=== PATIENT | male | born 1945 | race Caucasian/White ===

== ENCOUNTER 2020-03-26 18:44 | Inpatient (IN) | payer OTHER, MEDICAID, SELFPAY ==
[~2020-03-26] VITALS: Ht 175.3 cm; Wt 104.3 kg
[2020-03-26 21:24] VITALS: BP 124/80
--- NOTE | 2020-03-27 00:25 | NUR ---
PT ISAIAH, ALS. TAKEN TO BED 5
--- NOTE | 2020-03-27 00:26 | NUR ---
PATIENT PRESENTS TO ED FROM [facility] WITH C/O HYPOXIA, AND HYPERGLYCEMIA . SKIN IS PINK/WARM/DRY; LUNGS CLEAR BL; HR EVEN AND REGULAR; PT DENIES ANY FEVER, CP, SOB, OR COUGH AT THIS TIME; VSS; PATIENT POSITIONED FOR COMFORT; HOB ELEVATED; BEDRAILS UP X2; BED DOWN. ER MD MADE AWARE OF PT STATUS.
--- NOTE | 2020-03-27 00:55 | NUR ---
PADMINI SWAB OBTAINED AND SENT TO LAB
[2020-03-27 01:12] LABS: HEMATOCRIT 43.6 % (36-52); HEMOGLOBIN 13.7 g/dL (12.0-18.0); MEAN CORPUSCULAR HEMOGLOBIN 30 pg (27-31); MEAN CORPUSCULAR HGB CONC 31 g/dL (33-37); MEAN CORPUSCULAR VOLUME 93.9 fL (80-94); PLATELET COUNT (AUTO) 68 K/uL (140-450); RED BLOOD CELL COUNT(AUTO) 4.65 MIL/uL (4.20-6.10); RED CELL DISTRIBUTION WIDTH 15.3 % (11.6-13.7); WHITE BLOOD COUNT (AUTO) 13.3 K/uL (4.8-10.8)
[2020-03-27 01:30] LABS: EOSINOPHILS % (MANUAL) 1 % (0-4); LYMPHOCYTES % (MANUAL) 22 % (20-46); MONOCYTES % (MANUAL) 2 % (5-12)
--- NOTE | 2020-03-27 01:35 | NUR ---
LACTIC ACID REPORTED FROM LAB = 4.1
[2020-03-27 01:36] LABS: ALBUMIN 2.4 g/dL (3.4-5.0); ANION GAP 17.6 (8-16); ASPARTATE AMINOTRANSFERASE 191 U/L (15-37); CARBON DIOXIDE 21.6 mmol/L (21-32); CHLORIDE 149 mmol/L (98-107); CREATININE 2.4 mg/dL (0.6-1.3); GLUCOSE 287 mg/dL (74-106); POTASSIUM 3.2 mmol/L (3.5-5.1); TOTAL BILIRUBIN 0.5 mg/dL (0.0-1.0)
--- NOTE | 2020-03-27 01:40 | NUR ---
TO CT VIA [facility]
[2020-03-27 01:49] LABS: SODIUM SERUM 185 mmol/L (136-145); UREA NITROGEN, BLOOD 65 mg/dL (7-18)
--- NOTE | 2020-03-27 01:53 | NUR ---
PT RETURN FROM RADIOLOGY
--- NOTE | 2020-03-27 01:53 | NUR ---
LAB CALLED FOR CRITICAL LAB VALUE. IS MADE AWARE.
[2020-03-27] MEDS ORDERED: NACL 0.9% 1,000 ML IV ONE (01:55)
--- NOTE | 2020-03-27 01:55 | NUR ---
RETURNED FROM CT
--- NOTE | 2020-03-27 01:59 | NUR ---
EKG ATTEMPTED, PT DID NOT COOPERATE AND ACTIVELY TRIED TO PULL AT CABLES
[2020-03-27 02:03] LABS: PROTHROMBIN TIME 13.2 secs (10.8-13.4)
--- NOTE | 2020-03-27 03:09 | NUR ---
MADE OTHER ATTEMPT AT EKG, PT DID NOT SIT STILL AND DID NOT COOPERATE WITH PROCEDURE. UNABLE TO OBTAIN
--- NOTE | 2020-03-27 04:39 | NUR ---
EKG PERFORMED AT BEDSIDE. PT WAS UNCOOPERATIVE DURING PROCEDURE. EKG READS SINUS RHYTHM @ 96
[2020-03-27] MEDS ORDERED: ACETAMINOPHEN 325 MG TAB PO PRN (08:25)
[2020-03-27] MEDS ORDERED: ONDANSETRON 4 MG/2 ML VIAL IM/IVP PRN (08:25)
[2020-03-27] MEDS ORDERED: guaiFENesin DM 200/20 MG-10 ML 10 ML UDC PO PRN (08:25)
[2020-03-27] MEDS ORDERED: POTASSIUM CHLORIDE 10 MEQ TABER PO PRN (08:25)
[2020-03-27] MEDS ORDERED: DOCUSATE SODIUM 100 MG GELCAP PO PRN (08:25)
[2020-03-27] MEDS ORDERED: HYDROcodone/APAP 7.5/325 MG 1 TAB PO PRN (08:25)
[2020-03-27] MEDS ORDERED: ZOLPIDEM 5 MG TAB PO PRN (08:25)
[2020-03-27] MEDS ORDERED: NITROGLYCERIN 0.4 MG TAB SL PRN (08:35)
[2020-03-27] MEDS ORDERED: NACL 0.45% 1,000 ML IV ONE (08:35)
[2020-03-27] MEDS: METOPROLOL 25 MG TAB PO SCH ×3 (09:00→21:40)
[2020-03-27] MEDS ORDERED: lisinopriL 5 MG TAB PO SCH (09:00)
[2020-03-27] MEDS: ECOTRIN 81 MG TABEC PO SCH (09:00)
[2020-03-27] MEDS: PANTOPRAZOLE 40 MG TABEC PO SCH (09:00)
--- NOTE | 2020-03-27 09:40 | NUR ---
PT IS INCOHERENT, UNABLE TO FOLLOW INSTRUCTIONS. 9AM MEDS NOT GIVEN. DR PONCE INFORMED- ORDERED TO HOLD MEDS FOR NOW.
[2020-03-27 09:48] LABS: BASOPHILS # (AUTO) 0.1 K/uL (0.00-0.22); EOSINOPHILS # (AUTO) 0.1 K/uL (0-0.4); EOSINOPHILS % (AUTO) 0.6 % (0.0-4.0); HEMATOCRIT 42.9 % (36-52); HEMOGLOBIN 13.5 g/dL (12.0-18.0); MEAN CORPUSCULAR HEMOGLOBIN 30 pg (27-31); MEAN CORPUSCULAR HGB CONC 32 g/dL (33-37); MEAN CORPUSCULAR VOLUME 94.9 fL (80-94); MONOCYTES # (AUTO) 0.3 K/uL (0.8-1.0); MONOCYTES % (AUTO) 2.5 % (1.7-9.3); NEUTROPHILS # (AUTO) 9.2 K/uL (1.8-7.7); NEUTROPHILS % (AUTO) 78.9 % (42.2-75.2); PLATELET COUNT (AUTO) 60 K/uL (140-450); RED BLOOD CELL COUNT(AUTO) 4.52 MIL/uL (4.20-6.10); RED CELL DISTRIBUTION WIDTH 15.5 % (11.6-13.7); WHITE BLOOD COUNT (AUTO) 11.6 K/uL (4.8-10.8)
[2020-03-27] MEDS ORDERED: ASPIRIN 81 MG TAB.CHEW ONE (10:47)
[2020-03-27] MEDS ORDERED: CRUSHER, PILL MC ONE ×2 (10:50→18:02)
--- NOTE | 2020-03-27 11:00 | NUR ---
PT AT BEDSIDE
[2020-03-27 11:44] LABS: AMYLASE 77 U/L (25-115); ANION GAP 18.6 (8-16); ASPARTATE AMINOTRANSFERASE 223 U/L (15-37); CARBON DIOXIDE 22.5 mmol/L (21-32); CHLORIDE 153 mmol/L (98-107); CHOL/HDL RATIO 6.8 (1-4.5); CREATININE 2.7 mg/dL (0.6-1.3); FREE T4 (FREE THYROXINE) 0.86 ng/dL (0.76-1.46); HDL CHOLESTEROL 24 mg/dL (40-60); LDL (CALC) 95 mg/dL (60-100); PHOSPHORUS 5.3 mg/dL (2.5-4.9); POTASSIUM 3.1 mmol/L (3.5-5.1); THYROID STIMULATING HORMONE 1.15 uIU/mL (0.34-3.74); TOTAL BILIRUBIN 0.4 mg/dL (0.0-1.0); TRIGLYCERIDES 228 mg/dL (30-150)
[2020-03-27 11:50] LABS: SODIUM SERUM 191 mmol/L (136-145)
[2020-03-27 11:59] LABS: ALBUMIN 2.4 g/dL (3.4-5.0); GLUCOSE 279 mg/dL (74-106); LIPASE 303 U/L (73-393)
[2020-03-27 12:05] LABS: UREA NITROGEN, BLOOD 65 mg/dL (7-18)
[2020-03-27 12:12] LABS: MAGNESIUM 2.6 mg/dL (1.8-2.4)
--- NOTE | 2020-03-27 12:22 | NUR ---
SPOKE TO DR BOSCH REGARDING CRITICAL LABS OF PT. NO NEW ORDERS GIVEN.
[2020-03-27] MEDS ORDERED: DEXTROSE 50% 50 ML SYR IVP PRN (12:55)
[2020-03-27] MEDS ORDERED: ACET-2619 PO (13:03)
[2020-03-27] MEDS ORDERED: CHOL100030 PO (13:03)
[2020-03-27] MEDS ORDERED: ASCO500T93 PO (13:03)
[2020-03-27] MEDS ORDERED: METF500T PO (13:03)
[2020-03-27] MEDS ORDERED: MEMA10TA PO (13:03)
[2020-03-27] MEDS ORDERED: METO25TA PO (13:03)
[2020-03-27] MEDS ORDERED: MULT-1328 PO (13:03)
--- NOTE | 2020-03-27 14:40 | NUR ---
ST AT BEDSIDE
--- NOTE | 2020-03-27 15:53 | NUR ---
*ST: CASE MANAGEMENT NOTE* Order received, chart reviewed. Cleared with FIELD CHECKER, Sharyn, to attempt bedside swallow eval. RN reported holding PO meds 2/2 pt's restlessness and poor follow-through. RN reported Pt often sliding in gurney, slipping his head in between gurney rails. Per chart, Pt received MS/Thin Liquids at [facility] prior to admit. Pt seen bedside, restless, often scratching his own chest and stomach, pulling on lines, sliding down in gurney. RN present to assist STRATEGIC PROCUREMENT MANAGER in repositioning Pt in gurney. Pt intermittently opened eyes but did not respond to greeting by speakers. No phonation emitted/elicited. Pt had very dry oral mucosa with STRATEGIC PROCUREMENT MANAGER attempting some oral care with Pt not engaging in sucking reflex or defensiveness. Ice chips x2 trialed with boli remaining where placed requiring removal by STRATEGIC PROCUREMENT MANAGER. Further PO trials deferred 2/2 poor attention to task. POC d/w pt's RN. RN verbalized that she would hold PO meds as Pt has severe ALOC. -Tuyet Gonzaelz MA, CCC-STRATEGIC PROCUREMENT MANAGER
[2020-03-27 16:15] LABS: APPEARANCE,URINE CLEAR (CLEAR); BILIRUBIN,URINE NEGATIVE (NEGATIVE); BLOOD, URINE 3+ (NEGATIVE); COLOR,URINE YELLOW (YELLOW); LEUKOCYTE ESTERASE ,URINE NEGATIVE (NEGATIVE); NITRITE, URINE NEGATIVE (NEGATIVE); PH,URINE 5.5 (5.0-9.0); UGLUCOSE TRACE (NEGATIVE)
[2020-03-27] MEDS: BLOOD GLUCOSE MONITORING 1 DEV DEV FS SCH ×2 (16:30→21:39)
[2020-03-27 16:43] LABS: WBC,URINE 0-5 /HPF (0-5)
[2020-03-27 16:46] LABS: BARBITURATE, URINE NEGATIVE ng/ml (NEG <=200); BENZODIAZEPINE, URINE NEGATIVE ng/mL (NEG <=200); CANNABINOID, URINE NEGATIVE ng/mL (NEG <=50); COCAINE, URINE NEGATIVE ng/mL (NEG <=300); OPIATE, URINE NEGATIVE ng/mL (NEG <=2000); PHENCYCLIDINE SCREEN,URINE NEGATIVE ng/mL (NEG <=25)
[2020-03-27] MEDS ORDERED: ATORVASTATIN 20 MG TAB PO SCH (17:00)
[2020-03-27] MEDS: INSULIN LISPRO SLIDING SCALE 100 UNITS/ML VIAL SUBQ PRN (18:00)
--- NOTE | 2020-03-27 18:24 | NUR ---
Luh cullen in ED - 03/27/20 at 1825 by [facility] SWAB DONE. PICKED UP BY LAB
--- NOTE | 2020-03-27 19:21 | NUR ---
RECIVED REPORT FROM CHASTITY SOLOMON, CONTINUATION OF CARE.
--- NOTE | 2020-03-27 19:21 | NUR ---
REPORT GIVEN TO JUANITO SOL. TRANSFER OF CARE AT THIS TIME.
[2020-03-27 21:15] LABS: CHLORIDE 153 mmol/L (98-107); CREATININE 2.3 mg/dL (0.6-1.3); GLUCOSE 179 mg/dL (74-106)
[2020-03-27 21:18] LABS: SODIUM SERUM 191 mmol/L (136-145); UREA NITROGEN, BLOOD 64 mg/dL (7-18)
--- NOTE | 2020-03-27 21:30 | NUR ---
REPORTED ABNORMAL LABS TO DR. PONCE VIA TELEPHONE. PER DR. PONCE NO NEW ORDERS RECIVED. LABS - Na 191, K 3.0, Cl 153, BUN 164, Creatine: 2.3.
[2020-03-27 22:38] LABS: CARBON DIOXIDE 22.3 mmol/L (21-32); CHLORIDE 151 mmol/L (98-107); CREATININE 2.5 mg/dL (0.6-1.3); GLUCOSE 250 mg/dL (74-106); POTASSIUM 3.3 mmol/L (3.5-5.1)
[2020-03-27 23:18] LABS: SODIUM SERUM 190 mmol/L (136-145)
[2020-03-27 23:19] LABS: UREA NITROGEN, BLOOD 66 mg/dL (7-18)
--- NOTE | 2020-03-27 23:46 | NUR ---
PERFORMED PERNIEAL CARE ON PT. SKIN LEFT CLEAN AND DRY. SKIN INTACT. BED LOCKED AND IN LOWEST POSITON. 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
--- NOTE | 2020-03-28 01:02 | NUR ---
Patient appears to be resting comfortably in bed. Vital Signs within normal limits. Respirations even and unlabored.
[2020-03-28] MEDS: NACL 0.45% 1,000 ML IV SCH ×3 (01:36→16:40)
--- NOTE | 2020-03-28 02:16 | NUR ---
Patient appears to be resting comfortably in bed. Patient remains on bus driver/monitor. Vital Signs within normal limits. Respirations even and unlabored. Pernineal care provided. Skin left clean and dry. No skin breakdown noted. Patient side rails up x2 for safety. Pt bed is locked and in lowest position.
--- NOTE | 2020-03-28 04:14 | NUR ---
Lab at bedside.
[2020-03-28 05:07] LABS: BASOPHILS # (AUTO) 0.1 K/uL (0.00-0.22); BASOPHILS % (AUTO) 0.8 % (0.0-2.0); EOSINOPHILS # (AUTO) 0.2 K/uL (0-0.4); EOSINOPHILS % (AUTO) 1.5 % (0.0-4.0); HEMATOCRIT 41.5 % (36-52); LYMPHOCYTES # (AUTO) 1.3 K/uL (2.0-11.5); LYMPHOCYTES % (AUTO) 11.3 % (20.5-51.1); MEAN CORPUSCULAR HEMOGLOBIN 30 pg (27-31); MEAN CORPUSCULAR HGB CONC 31 g/dL (33-37); MEAN CORPUSCULAR VOLUME 95.4 fL (80-94); MONOCYTES # (AUTO) 0.4 K/uL (0.8-1.0); MONOCYTES % (AUTO) 3.3 % (1.7-9.3); NEUTROPHILS # (AUTO) 9.7 K/uL (1.8-7.7); NEUTROPHILS % (AUTO) 83.1 % (42.2-75.2); PLATELET COUNT (AUTO) 54 K/uL (140-450); RED BLOOD CELL COUNT(AUTO) 4.35 MIL/uL (4.20-6.10); RED CELL DISTRIBUTION WIDTH 15.3 % (11.6-13.7); WHITE BLOOD COUNT (AUTO) 11.7 K/uL (4.8-10.8)
[2020-03-28 06:03] LABS: CARBON DIOXIDE 22.8 mmol/L (21-32); CHLORIDE 153 mmol/L (98-107); CREATININE 2.2 mg/dL (0.6-1.3); GLUCOSE 192 mg/dL (74-106)
[2020-03-28 06:17] LABS: POTASSIUM 2.8 mmol/L (3.5-5.1); SODIUM SERUM 190 mmol/L (136-145); UREA NITROGEN, BLOOD 63 mg/dL (7-18)
--- NOTE | 2020-03-28 06:18 | NUR ---
RECIVED REPORT FOR CRITICAL LAB POTASSIUM 2.8, PRN MEDICATION OF 40MEQ PO GIVEN TO PATIENT. PT ABLE TO TOLERATE MEDICATION ADMIN WITH APPLESAUCE. 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 VSS. PT REPOSITIONED IN BED. BED LOCKED AND IN LOWEST POSITION. SKIN SLEAC AND DRY AT THIS TIME.
--- NOTE | 2020-03-28 06:19 | NUR ---
EDELMIRAD MADE AWARE OF ABNORMAL LABS.
--- NOTE | 2020-03-28 07:19 | NUR ---
REPORT GIVEN TO RADHA SOLOMON. TRANSFER OF CARE.
--- NOTE | 2020-03-28 07:28 | NUR ---
assumed patient care 74 years old male altered, resting in [facility] no sob no acute resp distress vital stable will continue to monitor awaiting for admit ICU bed.
[2020-03-28 08:07] LABS: T4 (THYROXINE) 5.3 ug/dL (4.5-12.0)
[2020-03-28] MEDS: BLOOD GLUCOSE MONITORING 1 DEV DEV FS SCH ×3 (08:30→21:00)
[2020-03-28] MEDS: INSULIN LISPRO SLIDING SCALE 100 UNITS/ML VIAL SUBQ PRN (08:36)
--- NOTE | 2020-03-28 08:46 | NUR ---
PROVIDED PT WITH BREAKFAST TRAY
[2020-03-28] MEDS: ECOTRIN 81 MG TABEC PO SCH (09:00)
[2020-03-28] MEDS: METOPROLOL 25 MG TAB PO SCH ×2 (09:53→21:00)
[2020-03-28] MEDS: PANTOPRAZOLE 40 MG TABEC PO SCH (09:54)
--- NOTE | 2020-03-28 10:45 | NUR ---
patient condition unchanged, bed/linens changed will continue to monitor.
--- NOTE | 2020-03-28 15:31 | NUR ---
PATIENT VERY LETHARGIC, NON VERBAL.SPEECH THERAPIST VISITS PT AT BEDSIDE , UNABLE TO SWALLOW, NO ACUTE DISTRESS WILL CONTINUE TO MONITOR.
--- NOTE | 2020-03-28 19:05 | NUR ---
patient remain very lethargic, no response to verbal stimuli.hypoxic placed on 15L MNR, ABG completed, Dr Rodriguez re-evaluate patient at bedside.
[2020-03-28] MEDS ORDERED: INTUBATION KIT MC ONE (19:31)
--- NOTE | 2020-03-28 19:45 | NUR ---
PT INTUBATED AT THIS TIME
[2020-03-28] MEDS ORDERED: PROPOFOL 1000 MG/100 ML PREMIX 100 ML IV PRN (20:00)
[2020-03-28] MEDS ORDERED: MORPHINE SULFATE 50 MG in NACL 0.9% 45 ML IV PRN (20:00)
[2020-03-28] MEDS ORDERED: DEXTROSE 5% 1,000 ML IV SCH (20:50)
--- NOTE | 2020-03-28 21:00 | NUR ---
PT ETT TO VENT. ON ACVC MODE. FIO2 100%. TV 450, RATE 22, PEEP 10.
[2020-03-28 22:00] VITALS: BP 93/50
--- NOTE | 2020-03-28 23:29 | NUR ---
Luh cullen in EDM - 03/29/20 at 0026 by [email or web address] PT CODED AT THIS TIME. HR BRADY. HENRY AT BEDSIDE.
--- NOTE | 2020-03-28 23:39 | NUR ---
PT CODED AT THIS TIME. HR FE. ERMD AT BEDSIDE.
[2020-03-28 23:40] LABS: ANION GAP 18.1 (8-16); CARBON DIOXIDE 24.6 mmol/L (21-32); CHLORIDE 153 mmol/L (98-107); CREATININE 3.4 mg/dL (0.6-1.3); GLUCOSE 250 mg/dL (74-106); POTASSIUM 4.7 mmol/L (3.5-5.1)
[2020-03-28] MEDS ORDERED: DOPPLER MC ONE (23:59)
--- NOTE | 2020-03-29 00:02 | NUR ---
TIME OF PRONOUNCED BY DR JESUS
[2020-03-29 00:15] LABS: SODIUM SERUM 191 mmol/L (136-145); UREA NITROGEN, BLOOD 76 mg/dL (7-18)
--- NOTE | 2020-03-29 00:47 | NUR ---
NOTIFIED [facility], SPOKE WITH GILDARDO. REF #[id number]
--- NOTE | 2020-03-29 00:50 | NUR ---
CALLED TAR LEVELER. CALL BACK NUMBER GIVEN.
--- NOTE | 2020-03-29 00:52 | NUR ---
NOTIFIED FAMILY OF . FRANCISCO (SON) [phone]. STATED WILL CALL BACK.
--- NOTE | 2020-03-29 01:32 | NUR ---
RECEIVED CALL FROM [facility]. SPOKE WITH OK FOR BODY TO BE RELEASED. #[phone]
--- NOTE | 2020-03-29 03:25 | NUR ---
S/W AGAPI, -- FAMILY HAS NO MORTUARY AT THIS TIME AND STATES SON-- FRANCISCO WILL BE IN CONTACT WITH STAFF ONCE INFORMATION IS KNOWN.
--- NOTE | 2020-03-29 06:06 | NUR ---
CALLED SNOWBOARD INSTRUCTOR, SPOKE WITH ALEAH. STATED "WE ARE VERY BUSY AND THE CALL IS STILL HOLDING."
--- NOTE | 2020-03-29 07:20 | NUR ---
REPORT GIVEN TO ANJEL SOLOMON
--- NOTE | 2020-03-29 08:06 | NUR ---
Patient body released by research statistician. Aidan Duarte, seismic prospecting supervisor states no case # needed.
[2020-03-30 09:15] LABS: HEPATITIS A ANTIBODY IGM Negative (Negative); HEPATITIS B CORE AB TOTAL Negative (Negative); HEPATITIS B SURFACE ANTIGEN Negative (Negative)
[2020-03-30 22:06] LABS: HEPATITIS B SURFACE ANTIBODY Non Reactive (.)
== END 2020-03-29 00:02 | DRG 682 ==
LOC: MED 18:44 → MTU 03-27 07:48
PROVIDERS: ADMIT Family Medicine; ATTEND Family Medicine
PROC: 0BH17EZ Insertion of Endotracheal Airway into Trachea, Via Natural or Artificial Opening (ICD-10-PCS; principal; 2020-03-27)
PROC: 5A1935Z Respiratory Ventilation, Less than 24 Consecutive Hours (ICD-10-PCS; 2020-03-28)
DX: N17.0 Acute kidney failure with tubular necrosis (principal); E43 Unspecified severe protein-calorie malnutrition; G93.41 Metabolic encephalopathy; J96.01 Acute respiratory failure with hypoxia; K72.00 Acute and subacute hepatic failure without coma; I21.A1 Myocardial infarction type 2; E87.0 Hyperosmolality and hypernatremia; R65.10 Systemic inflammatory response syndrome (SIRS) of non-infectious origin without acute organ dysfunction; M62.82 Rhabdomyolysis; E87.2 Acidosis; E78.5 Hyperlipidemia, unspecified; E87.6 Hypokalemia; F03.90 Unspecified dementia, unspecified severity, without behavioral disturbance, psychotic disturbance, mood disturbance, and anxiety; I10 Essential (primary) hypertension; Z20.828 Contact with and (suspected) exposure to other viral communicable diseases; E11.65 Type 2 diabetes mellitus with hyperglycemia; E86.0 Dehydration; F29 Unspecified psychosis not due to a substance or known physiological condition; Z74.01 Bed confinement status; Z68.34 Body mass index [BMI] 34.0-34.9, adult
CPT/HCPCS: 36415; 70450; 71045; 80048; 80053; 80305; 81001; 82009; 82150; 82550; 82553; 83036; 83605; 83690; 83735; 83874; 83880; 83930; 83935; 84100; 84300; 84436; 84439; 84443; 84479; 84484; 85025; 85610; 85730; 86704; 86706; 86708; 86709; 86803; 87040; 87086; 87340; 92610; 93005; 96360; 97110; 97112; 97161-GP; 97530; 99291; J7030